=== PATIENT | female | born 1965 | race African-American/Black ===

== ENCOUNTER 2017-10-27 22:17 | Emergency (ER) | payer OTHER ==
[2017-10-27] MEDS: SOD CHLORIDE 0.9% 1,000 ML IV (23:59)
[2017-10-28 00:39] LABS: ADD MAN DIFF? NO
[2017-10-28 00:51] LABS: BASOPHILS % 0.4 % (0.0-2.0); EOSINOPHILS % 0.4 % (0.0-7.0); HEMOGLOBIN 14.5 g/dl (12.0-16.0); LYMPHOCYTES # 2.7 10^3/ul (0.8-2.9); LYMPHOCYTES % 53.3 % (15.0-51.0); MEAN CORPUSCULAR HEMOGLOBIN 28.5 pg (29.0-33.0); MEAN CORPUSCULAR HGB CONC 32.2 g/dl (32.0-37.0); MEAN CORPUSCULAR VOLUME 88.4 fl (82.0-101.0); MEAN PLATELET VOLUME 10.6 fl (7.4-10.4); MONOCYTE # 0.6 10^3/ul (0.3-0.9); MONOCYTES % 12.6 % (0.0-11.0); NEUTROPHIL # 1.7 10^3/ul (1.6-7.5); NEUTROPHILS % 32.9 % (39.0-77.0); PLATELET COUNT 259 10^3/UL (140-415); RED BLOOD COUNT 5.09 10^6/ul (4.20-5.40); RED CELL DISTRIBUTION WIDTH 12.2 % (11.5-14.5)
[2017-10-28 00:51] LABS: WHITE BLOOD COUNT 5.1 10^3/ul (4.8-10.8)
[2017-10-28 01:11] LABS: ALANINE AMINOTRANSFERASE 58 IU/L (13-69); ALBUMIN 4.2 g/dl (3.3-4.9); ALKALINE PHOSPHATASE 72 IU/L (42-121); ANION GAP 17 (8-16); ASPARTATE AMINO TRANSFERASE 31 IU/L (15-46); BILIRUBIN,INDIRECT 0.2 mg/dl (0-1.1); BILIRUBIN,TOTAL 0.2 mg/dl (0.2-1.3); BLOOD UREA NITROGEN 20 mg/dl (7-20); CALCIUM 9.8 mg/dl (8.4-10.2); CARBON DIOXIDE 28 mmol/L (21-31); CHLORIDE 97 mmol/L (97-110); CREATININE 0.99 mg/dl (0.44-1.00); GLUCOSE 203 mg/dl (70-220); POTASSIUM 4.2 mmol/L (3.5-5.1); SODIUM 138 mmol/L (135-144); TOTAL PROTEIN 7.7 g/dl (6.1-8.1)
[2017-10-28] MEDS: KETOROLAC 30 MG INJ IV (01:51)
[2017-10-28 02:16] LABS: ADD UMIC YES; UR ASCORBIC ACID NEGATIVE (NEGATIVE); UR BACTERIA FEW /HPF (NONE SEEN); UR BILIRUBIN (Dip) NEGATIVE (NEGATIVE); UR BLOOD (Dip) 1+ mg/dL (NEGATIVE); UR CLARITY CLOUDY (CLEAR); UR COLOR AMBER (YELLOW); UR GLUCOSE (Dip) 1+ mg/dL (NEGATIVE); UR KETONES (Dip) NEGATIVE (NEGATIVE); UR LEUKOCYTE ESTERASE (Dip) TRACE Leu/ul (NEGATIVE); UR MUCUS FEW /HPF (NONE SEEN); UR NITRITE (Dip) NEGATIVE (NEGATIVE); UR RBC 14 /HPF (0-5); UR SPECIFIC GRAVITY (Dip) 1.023 (1.003-1.030); UR SQUAMOUS EPITHELIAL CELL MODERATE /HPF (FEW); UR TOTAL PROTEIN (Dip) 3+ mg/dl (NEGATIVE); UR TRANSITIONAL EPI CELL FEW /HPF (NONE SEEN); UR UROBILINOGEN (Dip) NEGATIVE (NEGATIVE); UR WBC 51 /HPF (0-5)
[2017-10-28] MEDS: CEFTRIAXONE 1 GM/50 ML (PMX) 50 ML IVPB (03:48)
== END 2017-10-28 04:32 | disposition home or self-care (01) ==
LOC: FTE 10-28 04:32
DX: R50.9 Fever, unspecified (principal); R05 Cough; R09.81 Nasal congestion; E11.9 Type 2 diabetes mellitus without complications; I10 Essential (primary) hypertension; R10.9 Unspecified abdominal pain
CPT/HCPCS: 36415; 71010; 80053; 81001; 82962; 85025; 87400; 96374; 96375; 99284-25

== ENCOUNTER 2018-01-20 09:45 | Inpatient (IN) | payer OTHER ==
[2018-01-20] MEDS ORDERED: BISACODYL 10 MG SUPP PR (11:30)
[2018-01-20] MEDS ORDERED: ONDANSETRON 4 MG INJ IV (11:30)
[2018-01-20] MEDS ORDERED: morphine 2 MG INJ IV (11:30)
[2018-01-20] MEDS ORDERED: ZOLPIDEM 5 MG TAB PO (11:30)
[2018-01-20] MEDS ORDERED: GLUCOSE GEL 15 GRAM TUBE PO ×2 (12:30)
[2018-01-20] MEDS ORDERED: GLUCAGON 1 MG INJ IM (12:30)
[2018-01-20] MEDS ORDERED: GLUCOSE GEL 15 GRAM TUBE BUCCAL (12:30)
[2018-01-20] MEDS ORDERED: DEXTROSE 50% 50 ML SYRINGE IV ×2 (12:30)
[2018-01-20] MEDS: INSULIN ASPART [NOVOLOG] 3 ML PEN SC ×5 (12:39→20:39)
[2018-01-20] MEDS: BENAZEPRIL 20 MG TAB PO (12:43)
[2018-01-20] MEDS: DOCUSATE SODIUM 100 MG CAP PO ×2 (12:43→20:36)
[2018-01-20] MEDS: SOD CHLORIDE 0.9% 1,000 ML IV ×2 (12:43→22:22)
[2018-01-20] MEDS: GABAPENTIN 300 MG CAP PO ×2 (12:43→20:36)
[2018-01-20 16:09] LABS: ADD UMIC YES; UR ASCORBIC ACID NEGATIVE (NEGATIVE); UR BACTERIA FEW /HPF (NONE SEEN); UR BILIRUBIN (Dip) NEGATIVE (NEGATIVE); UR BLOOD (Dip) NEGATIVE (NEGATIVE); UR CLARITY SLIGHTLY CLOUDY (CLEAR); UR COLOR YELLOW (YELLOW); UR GLUCOSE (Dip) 3+ mg/dL (NEGATIVE); UR KETONES (Dip) NEGATIVE (NEGATIVE); UR LEUKOCYTE ESTERASE (Dip) 2+ Leu/ul (NEGATIVE); UR NITRITE (Dip) NEGATIVE (NEGATIVE); UR RBC 6 /HPF (0-5); UR SPECIFIC GRAVITY (Dip) 1.025 (1.003-1.030); UR SQUAMOUS EPITHELIAL CELL MODERATE /HPF (FEW); UR TOTAL PROTEIN (Dip) 2+ mg/dl (NEGATIVE); UR UROBILINOGEN (Dip) NEGATIVE (NEGATIVE); UR WBC > 182 /HPF (0-5)
[2018-01-20] MEDS: MAGNESIUM CITRATE 300 ML BTL PO (17:03)
[2018-01-20] MEDS: FAMOTIDINE 20 MG TAB PO (20:36)
[2018-01-21] MEDS: ACCU-CHEK XX (01:54)
[2018-01-21] MEDS: ACETAMINOPHEN 325 MG TAB PO (01:54)
[2018-01-21] MEDS: INSULIN ASPART [NOVOLOG] 3 ML PEN SC ×9 (02:39→20:50)
[2018-01-21 06:13] LABS: ADD MAN DIFF? NO
[2018-01-21 06:19] LABS: WHITE BLOOD COUNT 6.2 10^3/ul (4.8-10.8)
[2018-01-21 06:19] LABS: BASOPHILS % 0.3 % (0.0-2.0); EOSINOPHILS # 0.1 10^3/ul (0.0-0.5); EOSINOPHILS % 1.9 % (0.0-7.0); HEMATOCRIT 41.7 % (37.0-47.0); HEMOGLOBIN 13.6 g/dl (12.0-16.0); LYMPHOCYTES # 2.6 10^3/ul (0.8-2.9); LYMPHOCYTES % 41.4 % (15.0-51.0); MEAN CORPUSCULAR HEMOGLOBIN 29.1 pg (29.0-33.0); MEAN CORPUSCULAR HGB CONC 32.6 g/dl (32.0-37.0); MEAN CORPUSCULAR VOLUME 89.1 fl (82.0-101.0); MEAN PLATELET VOLUME 10.6 fl (7.4-10.4); MONOCYTE # 0.5 10^3/ul (0.3-0.9); MONOCYTES % 7.2 % (0.0-11.0); NEUTROPHILS % 48.9 % (39.0-77.0); PLATELET COUNT 320 10^3/UL (140-415); RED BLOOD COUNT 4.68 10^6/ul (4.20-5.40); RED CELL DISTRIBUTION WIDTH 12.5 % (11.5-14.5)
[2018-01-21 06:46] LABS: ANION GAP 19 (8-16); BLOOD UREA NITROGEN 19 mg/dl (7-20); CALCIUM 9.3 mg/dl (8.4-10.2); CARBON DIOXIDE 27 mmol/L (21-31); CHLORIDE 104 mmol/L (97-110); CHOL/HDL RATIO 7.2 RATIO; CHOLESTEROL 180 mg/dl (100-200); CREATININE 0.78 mg/dl (0.44-1.00); GLUCOSE 317 mg/dl (70-220); HDL CHOLESTEROL 25 mg/dl (37-92); LDL CHOLESTEROL,CALCULATED 74 mg/dl; MAGNESIUM 2.3 mg/dl (1.7-2.5); PHOSPHORUS 3.3 mg/dl (2.5-4.9); POTASSIUM 4.8 mmol/L (3.5-5.1); SODIUM 145 mmol/L (135-144); TRIGLYCERIDES 403 mg/dl (0-149)
[2018-01-21 07:01] LABS: HEMOGLOBIN A1C 12.4 % (0-5.9)
[2018-01-21] MEDS: FAMOTIDINE 20 MG TAB PO ×2 (08:38→20:45)
[2018-01-21] MEDS: GABAPENTIN 300 MG CAP PO ×3 (08:38→20:45)
[2018-01-21] MEDS: INSULIN GLARGINE [LANtus] 3 ML PEN SC ×2 (08:43→10:21)
[2018-01-21] MEDS: DOCUSATE SODIUM 100 MG CAP PO ×2 (08:44→20:51)
[2018-01-21] MEDS: BENAZEPRIL 20 MG TAB PO (08:44)
[2018-01-21] MEDS: POLYETHYLENE GLYCOL 17 GM PACKET PO (08:45)
[2018-01-21] MEDS: ASPIRIN 81 MG TAB PO (12:31)
[2018-01-21] MEDS: CEFTRIAXONE 1 GM/50 ML (PMX) 50 ML IVPB (12:31)
[2018-01-21] MEDS: FISH OIL 1,000 MG CAP PO (20:45)
[2018-01-21] MEDS: GEMFIBROZIL 600 MG TAB PO (20:46)
[2018-01-22] MEDS: ACCU-CHEK XX (01:55)
[2018-01-22] MEDS: FLUTICASONE 0.05% 16 GM NAS SPRAY NASAL (05:01)
[2018-01-22] MEDS: ACETAMINOPHEN 325 MG TAB PO (05:03)
[2018-01-22 06:02] LABS: ADD MAN DIFF? NO
[2018-01-22 06:11] LABS: BASOPHILS % 0.5 % (0.0-2.0); EOSINOPHILS # 0.2 10^3/ul (0.0-0.5); EOSINOPHILS % 2.8 % (0.0-7.0); HEMATOCRIT 37.1 % (37.0-47.0); HEMOGLOBIN 12.1 g/dl (12.0-16.0); LYMPHOCYTES # 2.1 10^3/ul (0.8-2.9); LYMPHOCYTES % 34.6 % (15.0-51.0); MEAN CORPUSCULAR HEMOGLOBIN 29.3 pg (29.0-33.0); MEAN CORPUSCULAR HGB CONC 32.6 g/dl (32.0-37.0); MEAN CORPUSCULAR VOLUME 89.8 fl (82.0-101.0); MEAN PLATELET VOLUME 10.4 fl (7.4-10.4); MONOCYTE # 0.6 10^3/ul (0.3-0.9); MONOCYTES % 10.2 % (0.0-11.0); NEUTROPHIL # 3.1 10^3/ul (1.6-7.5); NEUTROPHILS % 51.6 % (39.0-77.0); PLATELET COUNT 270 10^3/UL (140-415); RED BLOOD COUNT 4.13 10^6/ul (4.20-5.40); RED CELL DISTRIBUTION WIDTH 12.2 % (11.5-14.5)
[2018-01-22 06:11] LABS: WHITE BLOOD COUNT 6.1 10^3/ul (4.8-10.8)
[2018-01-22 06:42] LABS: ANION GAP 16 (8-16); BLOOD UREA NITROGEN 16 mg/dl (7-20); CALCIUM 8.7 mg/dl (8.4-10.2); CARBON DIOXIDE 27 mmol/L (21-31); CHLORIDE 105 mmol/L (97-110); CREATININE 0.71 mg/dl (0.44-1.00); GLUCOSE 252 mg/dl (70-220); POTASSIUM 4.5 mmol/L (3.5-5.1); SODIUM 143 mmol/L (135-144)
[2018-01-22] MEDS: FISH OIL 1,000 MG CAP PO (08:19)
[2018-01-22] MEDS: FAMOTIDINE 20 MG TAB PO (08:20)
[2018-01-22] MEDS: GABAPENTIN 300 MG CAP PO ×2 (08:20→13:00)
[2018-01-22] MEDS: BENAZEPRIL 20 MG TAB PO (08:20)
[2018-01-22] MEDS: DOCUSATE SODIUM 100 MG CAP PO (08:21)
[2018-01-22] MEDS: GEMFIBROZIL 600 MG TAB PO (08:21)
[2018-01-22] MEDS: ASPIRIN 81 MG TAB PO (08:21)
[2018-01-22] MEDS: INSULIN ASPART [NOVOLOG] 3 ML PEN SC ×4 (08:24→12:23)
[2018-01-22] MEDS: INSULIN GLARGINE [LANtus] 3 ML PEN SC (08:32)
[2018-01-22] MEDS ORDERED: INSULIN GLARGINE [LANtus] 3 ML PEN SC (09:00)
[2018-01-22] MEDS: POLYETHYLENE GLYCOL 17 GM PACKET PO (09:00)
[2018-01-22] MEDS: CEFTRIAXONE 1 GM/50 ML (PMX) 50 ML IVPB ×2 (11:00→11:38)
== END 2018-01-22 15:00 | disposition home or self-care (01) | DRG 694 ==
LOC: MS2 09:45
PROVIDERS: Internal Medicine
DX: N20.0 Calculus of kidney (principal); E11.42 Type 2 diabetes mellitus with diabetic polyneuropathy; N10 Acute pyelonephritis; Z68.41 Body mass index [BMI] 40.0-44.9, adult; E11.65 Type 2 diabetes mellitus with hyperglycemia; E66.01 Morbid (severe) obesity due to excess calories; I10 Essential (primary) hypertension; Z79.4 Long term (current) use of insulin; K59.00 Constipation, unspecified; E78.5 Hyperlipidemia, unspecified; Z98.51 Tubal ligation status; Z87.891 Personal history of nicotine dependence
CPT/HCPCS: 74018; 80048; 80061; 81001; 82962; 83036; 83735; 84100; 84443; 85025; 87086; 93306